=== PATIENT | female | born 1990 | race Caucasian/White ===

== ENCOUNTER 2018-09-24 22:18 | Inpatient (IN) | payer BC ==
[2018-09-24 22:38] VITALS: BMI 26.9
[2018-09-25] MEDS ORDERED: hydrALAZINE 20 MG/ML VIAL SLOW IVP PRN (00:31)
[2018-09-25] MEDS ORDERED: Acetaminophen/Codeine 30-300mg Tablet PO PRN (01:14)
[2018-09-25] MEDS ORDERED: cloNIDine 0.1 MG TAB PO PRN (01:14)
[2018-09-25] MEDS ORDERED: Calcium Carbonate 500 MG ChewTAB PO PRN (01:15)
[2018-09-25] MEDS ORDERED: Ondansetron PF 4 MG/2 ML Vial IVP PRN (01:15)
[2018-09-25] MEDS ORDERED: Ondansetron ODT 4 MG TAB PO PRN (01:15)
[2018-09-25] MEDS ORDERED: Acetaminophen 325 MG TAB PO PRN (01:15)
[2018-09-25] MEDS ORDERED: Senokot S 8.6-50 MG TAB PO PRN (01:15)
[2018-09-25] MEDS ORDERED: ALPRAZolam 0.25 MG TAB PO PRN (01:18)
[2018-09-25] MEDS: HYDROcodone/Acetaminophen 5/325 mg Tablet PO PRN ×3 (01:29→14:01)
--- NOTE | 2018-09-25 01:47 | HP ---
CHIEF COMPLAINT: Shortness of breath. HISTORY OF PRESENT ILLNESS: The patient is a 28-year-old female with recent laparoscopic surgery at [facility] for ovarian cyst, presented to the emergency room at [facility] with shortness of breath of 1-day duration. It started yesterday evening. It was worse on deep breathing. The pain was left-sided, moderate in intensity. The pain gets worse when she lies down flat. Three weeks ago, she had emergent laparoscopic surgery at [facility] for ruptured right ovarian cyst. Post surgery, she was ambulating normally per patient report. No fever, or chills reported. She denies any cough or wheezing. No lightheadedness, or syncope reported. PAST MEDICAL HISTORY: History of stroke when she was 3-year-old. She had a thrombosis panel at that time, which was negative per patient report. Recent emergent surgery for ruptured ovarian cyst on the right. PAST SURGICAL HISTORY: As discussed above. ALLERGIES: NO KNOWN DRUG ALLERGIES. CURRENT HOME MEDICATIONS: Reviewed with the patient and none. FAMILY HISTORY: Negative for hypercoagulable state. Mother with hypertension. Father with prostate cancer. SOCIAL HISTORY: She currently lives at home. Denies current use of alcohol, tobacco, or drug use. She is a medical student. The patient drinks alcohol socially. She also wears glasses for vision. REVIEW OF SYSTEMS: All other review of systems was reviewed and was found negative. PHYSICAL EXAMINATION: VITAL SIGNS: On ER arrival, temperature 99.2, blood pressure 132/83, respirations of 18, O2 saturation 100% on room air. GENERAL: A 28-year-old female, in no apparent distress. HEENT: Head, atraumatic and normocephalic. Sclerae anicteric. Moist mucous membranes. No oral lesion. NECK: Supple. No JVD. No carotid bruit. LUNGS: Clear to auscultation bilaterally. No wheezing, rales, or rhonchi. HEART: S1 and S2 present. Regular rate and rhythm. ABDOMEN: Soft, nontender. Bowel sounds present. No rebound or guarding. EXTREMITIES: No edema or calf tenderness. NEUROLOGIC: Grossly nonfocal. Moves all 4 extremities. PSYCHIATRIC: Alert, awake, oriented x3. SKIN: Warm and dry. LYMPH NODES: No palpable lymph nodes in the neck. PERIPHERAL VASCULAR: Radial pulses palpable bilaterally. MUSCULOSKELETAL: No joint swelling, or tenderness. LABORATORY FINDINGS: CT angiogram of the chest at [facility] showed multifocal acute thromboemboli in both the lower lobes with possible small area of infarct in the peripheral left lower lobe. There was also left pleural effusion. There was no evidence of right heart strain. Basic metabolic profile showed sodium 138, potassium 3.9, chloride 105, bicarb 28, BUN 10, creatinine 0.5, glucose of 92. Urinalysis was negative for WBC bacteria. EKG by my review showed sinus tachycardia with S1Q3T3 pattern. WBC was 14.2 with hemoglobin 14.6, hematocrit 41.6, platelet of 314. IMPRESSION: 1. Bilateral pulmonary embolism with possible small area of infarct in the peripheral left lower lobe, probably secondary to recent immobilization from surgery. 2. Recent emergent surgery for ruptured ovarian cyst at [facility]. 3. History of cerebrovascular accident at the age of 3 with negative hypercoagulable workup per patient report. The patient has minimal right-sided weakness. 4. Leukocytosis, unlikely to be infectious. 5. Chest discomfort and shortness of breath secondary to bilateral pulmonary embolism. 6. Sinus tachycardia secondary to #1. PLAN: The patient will be monitored on the telemetry unit. She received 1 mg/kg Lovenox at 8:30 p.m. on September 24, 2018 at [facility]. Lovenox will be continued. I discussed various anticoagulation including Coumadin, Eliquis and Xarelto. She is a medical student and is aware of all the side effects. She prefers warfarin. However, she will discuss with Dr. Mei in a.m. I also offered echocardiogram and bilateral lower extremity Doppler. However, the patient would like to discuss with Dr. Mei prior to ordering the above test. She also declined hypercoagulable workup since she had a negative workup at the age of 3 per patient report. Please note that I could not find PT, INR, PTT from [facility] records. Plan of care was discussed with the patient in detail. She stated understanding. Job ID: [id number]
[2018-09-25] MEDS ORDERED: Enoxaparin Sodium 80 MG/0.8 ML SYRINGE SC SCH (09:00)
[2018-09-25] MEDS ORDERED: Warfarin Sodium 5 MG TAB PO SCH ×2 (11:30→17:00)
--- NOTE | 2018-09-25 11:59 | CON ---
DATE OF CONSULTATION: 09/25/2018 HISTORY OF PRESENT ILLNESS: The patient is a 28-year-old white female with past medical history significant for essentially nothing. She has an odd history of a stroke. This was in the left MCA distribution. It was diagnosed at the age of 3, but it is not clear what caused it, when it happened. Either way, she was in her usual state of health when she woke up in the middle of night with pleuritic chest discomfort. She presented to the emergency department and was identified as having bilateral pulmonary emboli. She did not have any shortness of breath per se, though she did feel an odd sense that she was breathing heavily. She denies any nausea, vomiting, fevers, or chills. Prior to this, she went to bed in her usual state of health without difficulties. PAST MEDICAL HISTORY: 1. History of left MCA distribution CVA, diagnosed at age 3, onset unknown. 2. Pulmonary embolism. PAST SURGICAL HISTORY: Laparoscopic surgery, postoperative week 3. ALLERGIES: NO KNOWN DRUG ALLERGIES. MEDICATIONS: List of her inpatient medications was reviewed. No specific updates were made. FAMILY HISTORY: Noncontributory. SOCIAL HISTORY: Negative for significant alcohol, tobacco, or illicit drug use. 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 She has no exposure to chemicals, dust, asbestos, or tuberculosis. REVIEW OF SYSTEMS: General; head eyes, ears, nose, and throat; cardiovascular, respiratory, GI, , musculoskeletal, neurologic, and skin are negative, except as mentioned in the HPI. PHYSICAL EXAMINATION: VITAL SIGNS: Afebrile, pulse 81, blood pressure 109/68, respirations 18, and saturation 96% on room air. GENERAL: The patient is awake, alert, in no apparent distress. LUNGS: Very good air entry. There is no prolonged expiratory phase or wheezing present. HEART: Normal rate and regular. ABDOMEN: Soft, nontender, nondistended. Bowel sounds are positive. MUSCULOSKELETAL: No cyanosis or clubbing. There is no pitting in the bilateral lower extremities. NEUROLOGIC: Grossly nonfocal. LABORATORY DATA: None currently within our system. Outside records were reviewed. Her white count is 14.2, hemoglobin 14.6, hematocrit 41, platelets 314. Basic metabolic profile is essentially unremarkable with a creatinine of 0.5. Sodium 138. IMAGING STUDIES: CTA of the chest demonstrates multifocal acute thromboembolic events in the bilateral lower lobes. There is an infarct in the left lower lobe. No evidence of right ventricular heart strain was present. ASSESSMENT: 1. Acute pulmonary embolism. 2. Pulmonary infarct. 3. Pleural effusion, small. DISCUSSION AND PLAN: I will repeat a chest x-ray. This will be a 2-view study. Provided the diffusion is not significant, she can be considered for transition home today. She is elected to go home on Coumadin. She understands the risks and benefits of direct oral anticoagulants and a Coumadin type drug. She will require 9 months of anticoagulation assuming she is tolerating it well. Hypercoagulable workup at this point is not indicated. Pulmonary/Critical Care will continue to follow along if she remains in-house, but my suspicion is, she will be transitioning home today. She will need close followup in the Coumadin Clinic. If this and Lovenox injections can be arranged, she can be considered for discharge home today. Job ID: [id number]
[2018-09-25 14:34] VITALS: BP 121/78; TEMP 98
--- NOTE | 2018-09-25 15:17 | RAD ---
CHEST TWO VIEWS: INDICATIONS: Acute of acute PE and minimal effusion. COMPARISON: None. FINDINGS: There is air space opacity in the left lobe, suspicious for either pulmonary hemorrhage or pneumonia. There is a small left pleural effusion. The right lung is clear. The heart size is normal. No ac [place] osseous abnormality is evident. IMPRESSION: 1. Air space opacity in the left lower lobe, suspicious for either pneumonia or hemorrhage. If the patient has a history pulmonary embolus, this can also be related to a large area of infarction. 2. Small left parapneumonic effusion. 3. Recommend radiographic followup to resolution. POS: CET
[2018-09-25] MEDS ORDERED: Apixaban 5 MG TAB PO SCH (16:15)
--- NOTE | 2018-09-26 02:14 | DIS ---
DATE OF ADMISSION: 09/24/2018 DATE OF DISCHARGE: 09/25/2018 PRIMARY CARE PROVIDER: None. CONSULTATIONS DURING THIS HOSPITALIZATION: Pulmonary and Critical Care Medicine, Dr. Fantasma Mei. DISCHARGE MEDICATIONS: Apixaban 10 mg 2 times a day for 1 week, followed by 5 mg 2 times a day. HOSPITAL COURSE: Ms. Ulloa is a pleasant 28-year-old lady who was admitted to [facility] on 09/25/2018, for bilateral pulmonary embolism. She was seen by Pulmonary and Critical Care Medicine Service. After discussion, she is being discharged home on apixaban for pulmonary embolism. The patient expressed understanding, questions were answered. DISCHARGE DESTINATION: Home. Job ID: [id number]
== END 2018-09-25 18:18 | disposition home or self-care (01) | DRG 176 ==
LOC: 2NO 22:18
PROVIDERS: ADMIT Internal Medicine; ATTEND Internal Medicine
DX: I26.99 Other pulmonary embolism without acute cor pulmonale (principal); J90 Pleural effusion, not elsewhere classified; D72.829 Elevated white blood cell count, unspecified; R00.0 Tachycardia, unspecified; Z86.73 Personal history of transient ischemic attack (TIA), and cerebral infarction without residual deficits
CPT/HCPCS: 71046; J1650

== ENCOUNTER 2018-11-23 15:48 | Outpatient (CLI) | payer BC ==
--- NOTE | 2018-11-23 16:57 | RAD ---
CHEST TWO VIEWS: 11/23/18 HISTORY: Dyspnea. COMPARISON: 09/25/18. FINDINGS: Normal cardiac silhouette. The pulmonary vessels and hilum are normal. Costophrenic angles are clear. No mass or consolidation. No pneumothorax or osseous abnormalities. IMPRESSION: No acute cardiopulmonary process. POS: [facility]PC
== END 2018-11-23 15:49 | disposition home or self-care (01) ==
LOC: RAD 15:48
PROVIDERS: ATTEND Internal Medicine
DX: R06.00 Dyspnea, unspecified (principal)
CPT/HCPCS: 71046